=== PATIENT | female | born 1990 | race Hispanic/Latino ===

== ENCOUNTER 2019-01-04 09:59 | Inpatient (IN) | payer MEDICAID ==
[2019-01-04] MEDS ORDERED: BRETHINE SUB-Q PRN (10:26)
[2019-01-04] MEDS ORDERED: AMPICILLIN/NS 2 GM/100 ML 2 GM/100 ML BAG IV ONE (10:26)
[2019-01-04] MEDS ORDERED: XYLOCAINE 2% INFILTRATI ONE (10:26)
[2019-01-04] MEDS ORDERED: MINERAL OIL PO PRN (10:26)
[2019-01-04] MEDS ORDERED: SUBLIMAZE IV PRN (10:26)
--- NOTE | 2019-01-04 10:34 | History and Physical Report ---
History of Present Illness Date of examination: 01/04/19 (IOL @ 39w6d heparin) Date of admission: 01/04/19 09:59 History of present illness: EDC Confirmation: 01/05/2019 Gestational Age: 33 3/7 weeks Past History : 2 Term Births: 1 Premature Births: 0 Living Children: 1 Para: 1 Mult. Births: 0 Prev : 0 Aborta: 0 Elect. Ab: 0 Spont. Ab: 0 Ectopics: 0 # 1 Delivery date: 12/07/2013 Weeks Gestation: 40 Delivery type: Hours of labor: 11 Anesthesia type: epidural Delivery location: [place] [facility] Sex: Female weight: 6-8 Risk Factors: Smoked Tobacco Use: Former smoker Cigarettes: Yes Year started: 2 Year quit: 2013 Years Since Last Quit: 5 Smokeless Tobacco Use: Never Counseled to quit/cut down: yes Passive smoke exposure: no Drug use: no HIV high-risk behavior: no Alcohol use: yes Type: social Drinks per day: <1 Exercise: yes Times per week: 2 Type of Exercise: walking Seatbelt use: 100 % Past Medical History: Anxiety Depression May-Thurner Syndrome Past Surgical History: Left leg shi varicose x2 Family History Summary: Other family member - Has No Family History of Colon Cancer - Entered On: 11/20/2018 Other family member - Has Family History of Ovarian Cancer - Entered On: 11/20/2018 Other family member - Has Family History of Hypertension - Entered On: 11/20/2018 Other family member - Has Family History of CVA or Stroke - Entered On: 11/20/2018 Other family member - Has Family History of Coronary Heart Disease - Entered On: 11/20/2018 Other family member - Has Family History Breast Cancer - Entered On: 11/20/2018 Social History: Marital Status: Children: 1 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 Infection History Hx of STD: chlamydia HIV Risk Eval: no Personal hx. of genital herpes: no Genetic History Congenital Heart Defect: Mom: no Dad: no Mariano Disease: Mom: no Dad: no Thalassemia Mom: no Dad: no Neural Tube Defect Mom: yes Dad: no Comments: Pat Aunt Down's Syndrome Mom: no Dad: no Raghu-Sachs Mom: no Dad: no Sickle Cell Disease/Trait Mom: no Dad: no Hemophilia Mom: no Dad: no Muscular Dystrophy Mom: no Dad: no Cystic Fibrosis Mom: no Dad: no Mcdonald Chorea Mom: no Dad: no Mental Retardation Mom: no Dad: no Fragile X Mom: no Dad: no Other Genetic/Chromosomal Disorder Mom: no Dad: no Child w/other defect Mom: no Dad: no Enviromental Exposures Xray Exposure: no Medication, drug, or alcohol use since LMP: no Chemical/Other Exposure: no Exposure to Cat Liter: yes Active Medications (reviewed today): Current Allergies (reviewed today): No known allergies Past History - Obstetrical History Expected Date of Delivery: 01/05/19 Actual Gestation: 39 Week(s) 6 Day(s) : 2 Para: 1 Hx # Term Pregnancies: 1 Number of Pregnancies: 0 Spontaneous Abortions: 0 Induced : 0 Number of Living Children: 1 Medications and Allergies Allergies Allergy/AdvReac Type Severity Reaction Status Date / Time No Known Allergies Allergy Verified 01/04/19 11:39 - Physical Exam Breasts: Positive: deferred Cardiovascular: Regular rate, Normal S1, Normal S2 Lungs: Positive: Normal air movement Abdomen: Positive: normal appearance, soft, normal bowel sounds. Negative: distention, tenderness Genitourinary (Female): Positive: normal external genitalia Vulva: both: normal Vagina: Positive: normal moisture. Negative: discharge Cervix: Negative: lesion, discharge Uterus: Positive: normal size, normal contour Adnexa: both: normal Anus/Rectum: Positive: normal perianal skin, heme negative. Negative: rectal mass, hemorrhoids Extremities: Positive: normal Deep Tendon Reflex Grade: Normal +2 - Obstetrical FHR: category 1 Uterine Contraction Monitor Mode: External Cervical Dilatation: 4 (ISE applied) Cervical Effacement Percentage: 70 station: -2 Uterine Contraction Pattern: Irregular Uterine Tone Measurement Phase: Resting Uterine Contraction Intensity: Mild Results Result Diagrams: 01/04/19 10:46 All other labs normal. GBS Positive Current OB Labs Blood Type: O (06/30/2018) Rh Type: negative (06/30/2018) Rh Antibody Screen: negative (06/30/2018) Hgb: 12.4 (06/30/2018) Hct: 38.3 (06/30/2018) Rubella: immune (06/30/2018) RPR: nonreactive (06/30/2018) Hep B Surface Antigen: negative (06/30/2018) HIV: negative (06/30/2018) Assessment and Plan 28yo @ 39w6d for IOL Pt has been on heparin last dose 01-03-19 GBS+ orders in EMR Re-eval as needed. aware of admission - Patient Problems (1) Group B Streptococcus carrier state affecting Onset Date: ~01/04/19 Current Visit: Yes Status: Acute Plan to address problem: ABX ordered per protcol (2) May-Thurner syndrome Onset Date: ~01/04/19 Current Visit: Yes Status: Acute Plan to address problem: Pt has been on Lovenox and transitioned to heparin @ 36 weeks. Last dose 2030 01/03/19 Anesthesia informed (3) RhD negative Onset Date: ~01/04/19 Current Visit: Yes Status: Acute Plan to address problem: Received Rhogam 10/05/18 @ 28 weeks gestation
[2019-01-04] MEDS ORDERED: PITOCin/NS 30 UNIT/500ML 30 UNITS/500 ML BAG IV SCH (11:00)
[2019-01-04] MEDS ORDERED: LACTATED RINGERS 1,000 ML IV SCH (11:00)
[2019-01-04 11:40] LABS: Hemoglobin 11.4 gm/dl (10.1-14.3); Mean Corpuscular HGB Conc 35 % (30-34); Mean Corpuscular Volume 86 fl (79-97); Platelet Count 204 K/mm3 (140-440); Red Blood Count 3.83 M/mm3 (3.65-5.03); Red Cell Distribution Width 13.5 % (13.2-15.2)
[2019-01-04 11:51] LABS: INR 0.96 (0.87-1.13)
[2019-01-04 11:52] LABS: Partial Thromboplastin Time 29.1 Sec. (24.2-36.6)
[2019-01-04] MEDS ORDERED: AMPICILLIN/NS 1 GM/50 ML 1 GM/50 ML BAG IV SCH (14:28)
[2019-01-04] MEDS: PITOCin/NS 20 UNIT/1000ML DRIP 20 UNITS/1,000 ML BAG IV SCH ×2 (14:55→16:03)
[2019-01-04] MEDS ORDERED: ZOFRAN IV PRN (15:02)
[2019-01-04] MEDS ORDERED: TYLENOL PO PRN (15:02)
[2019-01-04] MEDS ORDERED: DULCOLAX PR PRN (15:02)
[2019-01-04] MEDS ORDERED: TUCKS PAD TP PRN (15:02)
[2019-01-04] MEDS ORDERED: BENADRYL PO PRN (15:02)
[2019-01-04] MEDS ORDERED: LANSINOH TP PRN (15:02)
[2019-01-04] MEDS ORDERED: PHENERGAN PO PRN (15:02)
[2019-01-04] MEDS ORDERED: MILK OF MAGNESIA PO PRN (15:02)
--- NOTE | 2019-01-04 15:17 | Procedure Note ---
OB Delivery Note - Delivery Date of Delivery: 01/04/19 Instrument Specialist: LIZZ CABALLERO (arrived as baby delivered) Estimated blood loss: 300cc - Vaginal Delivery presentation: vertex Delivery position: OA Intrapartum events: none Delivery induction: oxytocin Delivery augmentation: pitocin Delivery monitor: external uterine, internal FHT Route of delivery: Delivery placenta: spontaneous Delivery cord: nuchal cord Episiotomy: none Delivery laceration: none Anesthesia: intravenous Delivery comments: Called urgently to LDR for imminent delivery CAN x 1 reduced Baby crying vigorously. Placed on mom's abdomen skin to skin. Cord blood obtained. Placenta and membrane delivered complete and intact, 3 vessel cord. Pitocin IVFs. 8/9, EBL 300, wgt 6-13 Mom and baby remain LDR stable Lovenox 40mg ordered to start @ 2200. - Infant A at 1 minute: 8 at 5 minutes: 9 Gender: Female (wgt 6-13)
[2019-01-04] MEDS ORDERED: SODIUM CHLORIDE FLUSH SYRINGE 10 ML IV NR (16:00)
[2019-01-04] MEDS: IBUPROFEN PO SCH ×2 (17:35→23:29)
[2019-01-04] MEDS: COLACE PO SCH (22:34)
[2019-01-04] MEDS: LOVENOX SUB-Q SCH (22:35)
[2019-01-05] MEDS: IBUPROFEN PO SCH ×2 (05:36→21:32)
[2019-01-05] MEDS ORDERED: M-M-R II VACCINE SUB-Q ONE (06:00)
[2019-01-05] MEDS ORDERED: BOOSTRIX IM ONE (06:00)
[2019-01-05 06:35] LABS: Hematocrit 29.5 % (30.3-42.9)
--- NOTE | 2019-01-05 08:49 | Discharge Summary ---
Providers - Providers Date of Admission: 01/04/19 09:59 Date of discharge: 01/05/19 (desires d/c home today) Attending physician: JUAN RAMON PADILLA Primary care physician: JUAN RAMON PADILLA Hospitalization Reason for admission: labor Condition: Good Pertinent studies: post del H&H 10.0/29.5 Procedures: Hospital course: uncomplicated and course Disposition: DC- TO HOME OR SELFCARE - Discharge Diagnoses (1) May-Thurner syndrome Status: Acute (2) Normal spontaneous vaginal delivery Status: Acute (3) RhD negative Status: Acute Core Measure Documentation - Palliative Care Palliative Care/ Comfort Measures: Not Applicable - Core Measures Any of the following diagnoses?: none Exam - Constitutional Vitals: Temp Pulse Resp BP Pulse Ox 98.0 F 64 18 104/56 100 01/05/19 00:50 01/04/19 17:00 01/05/19 00:50 01/05/19 00:50 01/04/19 14:39 General appearance: Present: no acute distress, well-nourished - EENT Eyes: Present: PERRL ENT: hearing intact, clear oral mucosa - Neck Neck: Present: supple, normal ROM - Respiratory Respiratory effort: normal Respiratory: bilateral: CTA - Cardiovascular Heart Sounds: Present: S1 & S2. Absent: rub, click - Extremities Extremities: pulses symmetrical, No edema Peripheral Pulses: within normal limits - Abdominal General gastrointestinal: Present: soft, non-tender, non-distended, normal bowel sounds Female genitourinary: Present: normal - Integumentary Integumentary: Present: clear, warm, dry - Musculoskeletal Musculoskeletal: gait normal, strength equal bilaterally - Psychiatric Psychiatric: appropriate mood/affect, intact judgment & insight - Neurologic Neurologic: CNII-XII intact, moves all extremities - Additional findings Additional findings: lochia scant, fundus firm, VSSAF, breast and bottle feeding infant Plan Activity: no restrictions Diet: regular Follow up with: JUAN RAMON PADILLA MD [Primary Care Provider] - 02/09/19 (Congratulations! Please call [phone] to schedule your visit in 4 weeks. Please also call Dr. Leggett to schedule your next appointment. Call for any questions or con cerns. ) Prescriptions: Enoxaparin [Lovenox] 80 mg SUB-Q DAILY #7 syringe Ibuprofen [Motrin 800 MG tab] 800 mg PO Q8HR PRN #30 tablet PRN Reason: Pain
[2019-01-05] MEDS ORDERED: PRENATAL VITAMIN PO SCH (10:00)
[2019-01-05] MEDS: COLACE PO SCH (21:31)
[2019-01-05] MEDS: LOVENOX SUB-Q SCH (21:33)
[2019-01-06] MEDS: IBUPROFEN PO SCH ×3 (06:14→13:00)
[2019-01-06 08:28] VITALS: BP 114/68
[2019-01-06] MEDS: COLACE PO SCH (10:49)
== END 2019-01-06 14:11 | disposition home or self-care (01) | DRG 774 ==
LOC: LD 09:59 → OB 17:12
PROVIDERS: ADMIT Obstetrics & Gynecology; ATTEND Obstetrics & Gynecology
PROC: 10E0XZZ Delivery of Products of Conception, External Approach (ICD-10-PCS; principal; 2019-01-04)
PROC: 10H07YZ Insertion of Other Device into Products of Conception, Via Natural or Artificial Opening (ICD-10-PCS; 2019-01-04)
PROC: 3E033VJ Introduction of Other Hormone into Peripheral Vein, Percutaneous Approach (ICD-10-PCS; 2019-01-04)
PROC: 3E0234Z Introduction of Serum, Toxoid and Vaccine into Muscle, Percutaneous Approach (ICD-10-PCS; 2019-01-05)
DX: O99.824 Streptococcus B carrier state complicating childbirth (principal); O99.42 Diseases of the circulatory system complicating childbirth; I87.1 Compression of vein; O26.893 Other specified pregnancy related conditions, third trimester; F41.9 Anxiety disorder, unspecified; O69.81X0 Labor and delivery complicated by cord around neck, without compression, not applicable or unspecified; O99.344 Other mental disorders complicating childbirth; F32.9 Major depressive disorder, single episode, unspecified; Z3A.39 39 weeks gestation of pregnancy; Z37.0 Single live birth; Z82.49 Family history of ischemic heart disease and other diseases of the circulatory system; Z87.891 Personal history of nicotine dependence; Z80.3 Family history of malignant neoplasm of breast; Z82.3 Family history of stroke; Z80.41 Family history of malignant neoplasm of ovary; Z67.41 Type O blood, Rh negative; Z23 Encounter for immunization
CPT/HCPCS: 36415; 85014; 85018; 85027; 85461; 85610; 85730; 86592; 86762; 86850; 86870; 86900; 86901; G0378; J0290; J1650; J2590; J2790; J7120